=== PATIENT | female | born 1990 | race Two or more races ===

== ENCOUNTER 2021-07-01 15:14 | Inpatient (IN) ==
[2021-07-01 20:01] LABS: Basophils # (auto) 0.01 K/uL (0-0.2); Basophils % (auto) 0.1 %; Hematocrit (blood only) 39.1 % (37-47); Hemoglobin 13.1 g/dL (12.0-16.0); Immature Granulocytes # (auto) 0.03 K/uL (0.00-0.02); Immature Granulocytes % (auto) 0.2 %; Lymphocytes # (auto) 1.09 K/uL (1.2-3.4); Lymphocytes % (auto) 8.2 %; Mean Corpuscular Hemoglobin 29.8 pg (25-34); Mean Corpuscular Hgb Conc 33.5 g/dL (32-36); Mean Corpuscular Volume 88.9 fL (80-100); Mean Platelet Volume 12.6 fL (7.4-10.4); Monocytes # (auto) 1.14 K/uL (0.11-0.59); Monocytes % (auto) 8.5 %; Platelet Count 184 K/uL (130-400); RDW Coefficient of Variation 13.1 % (11.5-14.5); RDW Standard Deviation 42.8 fL (36.4-46.3); White Blood Count 13.37 K/uL (4.8-10.8)
[2021-07-01] MEDS ORDERED: ACETAMINOPHEN 1,000 MG/100 ML VIAL IV STA (20:07)
[2021-07-01] MEDS ORDERED: ONDANSETRON INJ 2 MG/ML 2 ML VIAL IV STA ×2 (20:07→23:56)
[2021-07-01] MEDS ORDERED: KETOROLAC TROMETHAMINE 15 MG/ML VIAL IV STA (20:07)
[2021-07-01] MEDS: SODIUM CHLORIDE 0.9% 1000ML 1,000 ML IV SCH ×2 (20:24→21:50)
[2021-07-01 20:25] LABS: Appearance Urine Turbid (Clear); Bacteria Urine Automated 2+ (Negative); Bilirubin Urine Negative (Negative); Blood Urine 3+ (Negative); Color Urine Orange; Epithelial Cell Urine Auto >30 /lpf (0-5); Glucose Urine UA Negative (Negative); Ketones Urine Negative (Negative); Leukocyte Esterase Urine 3+ (Negative); Nitrite Urine Negative (Negative); RBC Urine Automated >30 /hpf (0-4); Specific Gravity Urine 1.016 (1.000-1.030); Urobilinogen Urine Negative (Negative); WBC Urine Automated >30 /hpf (0-5); pH Urine >= 9.0 (4.5-7.5)
[2021-07-01 20:25] LABS: Albumin Level 3.7 gm/dl (3.4-5.0); Calcium 9.5 mg/dl (8.5-10.1); Creatinine Clr Calc Pharmacy 115.7 ml/min; Est GFR (African American) 137.4 ml/min; Est GFR (Non-African American) 118.5 ml/min; Potassium 4.1 mmol/L (3.5-5.1)
[2021-07-01 20:29] LABS: Albumin Globulin Ratio 0.8 (0.9-2); Bilirubin,Total 0.7 mg/dl (0.2-1); Globulin 4.5 gm/dl (2.5-4.0); Total Protein 8.2 gm/dl (6.4-8.2)
[2021-07-01 20:34] LABS: Protein Urine 3+ (Negative)
[2021-07-01 20:38] LABS: Pregnancy Test, Urine Negative (Negative)
--- NOTE | 2021-07-01 20:41 | Emergency Department Note ---
History of Present Illness General Chief complaint: Vomiting Stated complaint: VOMITING, BACK ACHE Time Seen by Provider: 07/01/21 19:32 History of Present Illness Maximum Pain Intensity: 5 Patient is a healthy 31-year-old female who presents the emergency department for evaluation of left-sided flank pain with associated nausea and vomiting. She is accompanied by her spouse. They both provide the history. They note that the patient developed some dysuria, frequency, urgency and hematuria last week, about 6 days ago. She was seen at a urgent care center, and placed on a 3-day course of Bactrim and Pyridium. They did call her back and told her that the urine culture was "inconclusive." She appeared to be improving on the Bactrim however, so she finished this on Thursday 3 days ago. Later that evening however she developed vomiting, and then 2 days ago developed left flank pain. They tried increasing her fluid intake, and home remedies for constipation, using [id number] antacids and Gas-X, all without relief. She now has not been able to keep anything down since this morning. She is basically just dry heaving at this point. She did have some loose watery stools after using a laxative. She points to the left posterior ribs when asked where she has pain. She currently rates her discomfort a 5/10. She was having some discomfort that radiated to the left lower quadrant as well. Last menstrual period was 06/14/2021. Home Medications Medication Instructions Recorded Confirmed Type bisacodyl 5 mg tablet (Laxative 0 mg PO DIRECTED PRN 07/01/21 07/01/21 History (bisacodyl)) calcium carbonate 200 mg calcium 200 - 400 mg PO DIRECTED PRN 07/01/21 07/01/21 History (500 mg) chewable tablet (Tums) sulfamethoxazole 800 1 tab PO BID 07/01/21 07/01/21 History mg-trimethoprim 160 mg tablet (Bactrim DS) Allergies Allergy/AdvReac Type Severity Reaction Status Date / Time No Known Allergies Allergy Verified 07/01/21 20:02 Past Med/Surg History Medical History (Updated 07/02/21 @ 09:01 by Aris Meier M.D.) No significant past medical history Surgical History (Updated 07/02/21 @ 01:05 by Hubert Murphy) No history of previous surgery Social History Smoking Status: Never smoker Hx Alcohol Use: No Hx Substance Use: No Preferred Language: Kenyan Communication Ability: Effective Beliefs That Will Affect Care: None marital status: Current Living Situation: Spouse current occupational status: unemployed 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 Other Information That Helps Us Care for You: No Feels Safe at Home: Yes Safety Concerns: Feels Safe At This Time Assistive Devices: None Review of Systems A total of 10 systems reviewed and were otherwise negative Physical Exam Vital Signs Vital Signs - 24 hr 07/01/21 16:49 07/01/21 20:00 07/01/21 21:20 Temperature 36.4 C L 39.4 C H 37.6 C H Temperature Source Temporal Artery Scan Oral Oral Pulse Rate 89 Pulse Rate [Radial] Pulse Rhythm [Radial] Respiratory Rate 18 Respiratory Effort / Characteristics Non-Labored Spontaneous Respiratory Depth Normal Respiratory Pattern Regular Blood Pressure 111/76 Blood Pressure [Right Arm] Blood Pressure Mean 87 Blood Pressure Mean [Right Arm] Blood Pressure Position Sitting Blood Pressure Position [Right Arm] Pulse Oximetry 96 Oxygen Delivery Method Room Air Sepsis Recent Fever Within 48 Hours No Sepsis New/Unexplained Change in Mental Status No Sepsis Action Taken by Nursing No Action Required 07/01/21 22:47 07/01/21 23:00 07/01/21 23:02 Temperature 37.6 C H 37.7 C H Temperature Source Oral Oral Pulse Rate 104 H Pulse Rate [Radial] 82 Pulse Rhythm [Radial] Regular Respiratory Rate 20 18 Respiratory Effort / Characteristics Non-Labored Respiratory Depth Normal Respiratory Pattern Regular Blood Pressure 118/77 Blood Pressure [Right Arm] 139/87 Blood Pressure Mean 90 Blood Pressure Mean [Right Arm] 104 Blood Pressure Position Blood Pressure Position [Right Arm] Lying Pulse Oximetry 98 98 Oxygen Delivery Method Room Air Sepsis Recent Fever Within 48 Hours Sepsis New/Unexplained Change in Mental Status Sepsis Action Taken by Nursing CONSTITUTIONAL: Patient is an uncomfortable appearing 31-year-old female who is awake and alert and laying on the gurney. Spouse is at the bedside. Temperature was rechecked by myself prior to exam and was 39.4 C orally. EYES: Pupils equal, round, reactive to light and accommodation. EOMs intact without nystagmus. Sclera are anicteric. ENT: Tympanic membranes intact, with normal landmarks. External canals are clear. Oral and nasopharynx are clear. Mucous membranes are moist, no lesions, tongue and gums appear normal. CARDIOVASCULAR: Tachycardic rate and rhythm, with normal S1 and S2, no murmur or gallop or rub is heard. Peripheral pulses easily palpable. RESPIRATORY: Breath sounds equal and clear to auscultation without wheezes, rales, or rhonchi heard. Full and equal chest expansion without accessory muscle use or retractions. ABDOMEN: Bowel sounds are present. Abdomen is soft, nontender, nondistended. No guarding or rebound. Positive left CVA tenderness. INTEGUMENTARY: No lesions or rash, normal skin turgor. LYMPH: No lymphadenopathy. Course Course The patient was seen and assessed as above. Old records are reviewed. She presents the emergency department for evaluation of left flank pain with a prodr ome of UTI symptoms. She was found to be febrile in the emergency department. Nursing staff had implemented critical pathways prior to my assessment of the patient. CBC with differential, CMP, lipase and urinalysis were ordered. After my assessment of the patient, she was ordered a liter of normal saline solution. She was medicated with Tylenol 1000 mg IV for her fever, Toradol 15 mg IV for h er flank pain and Zofran 4 mg IV for nausea. CT scan of the abdomen and pelvis with IV contrast was ordered. Laboratory studies note a 13,300 white count with left shift and bandemia noted. H&H 13 and 39. [place] some without significant abnormality UN 7, creatinine 0.6 transaminases are normal. Lipase is 138. Urine microscopy concerning for infection, with blood, leukocyte esterase, WBCs, RBCs and 2+ bacteria. test is negative. CT scan of the abdomen and pelvis with IV contrast notes moderate urinary bladder wall thickening, probable cystitis given history. Enhancement of the left ureter, renal pelvis and patchy hypoenhancement of the renal cortex suggestive of a left pyelonephritis. Probable cyst in the left upper pole kidney, 1 cm intrarenal abscess in the upper pole difficult to entirely exclude. Colonic wall thickening and intermittent small bowel fluid nonspecific cannot rule out colitis or gastroenteritis. No free air. No small bowel obstruction. Laboratory and diagnostic imaging stat these were viewed with attending, and reviewed with the patient and her spouse at length. Patient on ceftriaxone 1 g IV. Temperature was rechecked by myself at this time, and the patient was afebrile, temperature 37.6 C orally. Given the possible renal abscess, I did review the patient with urology on-call, Dr. Prescott, who felt that the patient could be treated our facility. I did discuss inpatient care with the patient's and her , and they were in agreement. Consultation was placed with the [facility] Hospitalist service for admission/observation. Patient was seen by Dr. Lugo. The patient did have an episode of vomiti ng in the emergency department and was given a dose of Zofran 4 mg IV prior to being transferred to the floor. Administered Medications Acetaminophen (Acetaminophen 325 Mg Tab) 650 mg PO Q4H PRN PRN Reason: Pain or Fever Stop: 08/01/21 01:12 Last Admin: 07/02/21 01:41 Dose: 650 mg Documented by: [id number] Sodium Chloride (Nss 1000ml) 1,000 mls @ 100 mls/hr IV .Q10H ANTIONE Stop: 08/01/21 01:12 Last Admin: 07/02/21 01:41 Dose: 100 mls/hr Documented by: [id number] Discontinued Medications Acetaminophen (Acetaminophen 500 Mg Tab) 1,000 mg PO NOW STA Stop: 07/01/21 23:36 Last Admin: 07/02/21 00:11 Dose: Not Given Documented by: [id number] Sodium Chloride (Nss 1000ml) 1,000 mls @ 999 mls/hr IV .Q1H1M ANTIONE Stop: 07/01/21 22:08 Last Infusion: 07/01/21 22:51 Dose: 0 mls/hr Documented by: [id number] Admin: 07/01/21 21:50 Dose: 999 mls/hr Documented by: [id number] Infusion: 07/01/21 21:25 Dose: 0 mls/hr Documented by: [id number] Admin: 07/01/21 20:24 Dose: 999 mls/hr Documented by: [id number] Acetaminophen (Ofirmev) 1,000 mg in 100 mls @ 400 mls/hr IV NOW STA Stop: 07/01/21 20:21 Last Infusion: 07/01/21 20:39 Dose: 0 mls/hr Documented by: [id number] Admin: 07/01/21 20:24 Dose: 400 mls/hr Documented by: [id number] Ceftriaxone Sodium (Rocephin) 1,000 mg in 50 mls @ 100 mls/hr IV NOW STA Stop: 07/01/21 21:55 Last Infusion: 07/01/21 22:24 Dose: 0 mls/hr Documented by: [id number] Admin: 07/01/21 21:51 Dose: 100 mls/hr Documented by: [id number] Sodium Chloride (Nss 1000ml) 1,000 mls @ 999 mls/hr IV .Q1H1M ONE Stop: 07/02/21 08:48 Last Admin: 07/02/21 08:02 Dose: 999 mls/hr Documented by: [id number] Influenza Virus Vaccine Quadrival (Fluarix Quadrivalent 0.5 Ml Syr) 0.5 ml IM .ONCE ONE Stop: 07/02/21 01:34 Last Admin: 07/02/21 05:53 Dose: 0.5 ml Documented by: [id number] Ioversol (Optiray 320 100ml) 94 ml IV ONCE ONE Stop: 07/01/21 20:48 Last Admin: 07/01/21 20:48 Dose: 94 ml Documented by: [id number] Ketorolac Tromethamine (Ketorolac Tromethamine 15 Mg/Ml Vial) 15 mg IV NOW STA Stop: 07/01/21 20:08 Last Admin: 07/01/21 20:25 Dose: 15 mg Documented by: [id number] Ondansetron HCl (Ondansetron Inj 2 Mg/Ml 2 Ml Vial) 4 mg IV NOW STA Stop: 07/01/21 20:08 Last Admin: 07/01/21 20:24 Dose: 4 mg Documented by: [id number] Ondansetron HCl (Ondansetron Inj 2 Mg/Ml 2 Ml Vial) 4 mg IV NOW STA Stop: 07/01/21 23:57 Last Admin: 07/02/21 00:05 Dose: 4 mg Documented by: [id number] Medical Decision Making Differential Diagnosis Differential diagnoses included UTI, pyelonephritis, renal colic, infectious versus inflammatory colitis/enteritis, foodborne illness, dehydration, electrolyte of enterocolic abnormality, , ectopic , PID, tubo- ovarian abscess, among others. Medical Records Attestation: I reviewed the patient's medical records. Home Medications Current Medication List: was personally reviewed by me Laboratory Data Attestation: I reviewed the patient's lab results. Result diagrams: 07/02/21 07:47 07/02/21 07:47 Lab Results 07/01/21 07/01/21 07/01/21 Range/Units 19:42 19:42 19:50 WBC 13.37 H (4.8-10.8) K/uL RBC 4.40 (4.2-5.4) M/uL Hgb 13.1 (12.0-16.0) g/dL Hct 39.1 (37-47) % MCV 88.9 (80-100) fL MCH 29.8 (25-34) pg MCHC 33.5 (32-36) g/dL RDW Std Deviation 42.8 (36.4-46.3) fL RDW Coeff of Mitali 13.1 (11.5-14.5) % Plt Count 184 (130-400) K/uL MPV 12.6 H (7.4-10.4) fL Immature Gran % (Auto) 0.2 % Neut % (Auto) 83.0 % Lymph % (Auto) 8.2 % [place] % (Auto) 8.5 % Eos % (Auto) 0.0 % Baso % (Auto) 0.1 % Neut # (Auto) 11.10 H (1.4-6.5) K/uL Lymph # (Auto) 1.09 L (1.2-3.4) K/uL [place] # (Auto) 1.14 H (0.11-0.59) K/uL Eos # (Auto) 0.00 (0-0.5) K/uL Baso # (Auto) 0.01 (0-0.2) K/uL Immature Gran # (Auto) 0.03 H (0.00-0.02) K/uL Sodium 134 L (136-145) mmol/L Potassium 4.1 (3.5-5.1) mmol/L Chloride 101 (98-107) mmol/L Carbon Dioxide 27 (21-32) mmol/L Anion Gap 6.0 (3-11) BUN 7 (7-18) mg/dl Creatinine 0.66 (0.6-1.2) mg/dl Est Cr Clr Drug Dosing 115.7 ml/min Est GFR ( Amer) 137.4 ml/min Est GFR (Non-Af Amer) 118.5 ml/min BUN/Creatinine Ratio 10.0 (10-20) Glucose 133 H (70-99) mg/dl Calcium 9.5 (8.5-10.1) mg/dl Total Bilirubin 0.7 (0.2-1) mg/dl AST 21 (15-37) U/L ALT 49 (12-78) U/L Alkaline Phosphatase 58 (45-117) U/L Total Protein 8.2 (6.4-8.2) gm/dl Albumin 3.7 (3.4-5.0) gm/dl Globulin 4.5 H (2.5-4.0) gm/dl Albumin/Globulin Ratio 0.8 L (0.9-2) Lipase 138 (73-393) U/L Urine Color [place] Urine Appearance Turbid A (Clear) Urine pH >= 9.0 H (4.5-7.5) Ur Specific [place] 1.016 (1.000-1.030) Urine Protein 3+ H (Negative) Urine Glucose (UA) Negative (Negative) Urine Ketones Negative (Negative) Urine Blood 3+ H (Negative) Urine Nitrite Negative (Negative) Urine Bilirubin Negative (Negative) Urine Urobilinogen Negative (Negative) Ur Leukocyte Esterase 3+ H (Negative) Urine WBC (Auto) >30 H (0-5) /hpf Urine RBC (Auto) >30 H (0-4) /hpf U Hyaline Cast (Auto) 1-5 (0-5) /lpf U Epithel Cells (Auto) >30 H (0-5) /lpf Urine Bacteria (Auto) 2+ H (Negative) Urine Test (Negative) COVID-19 Eval Order SARS-CoV-2 (PCR) (Negative) 07/01/21 07/01/21 07/01/21 Range/Units 19:50 22:22 22:22 WBC (4.8-10.8) K/uL RBC (4.2-5.4) M/uL Hgb (12.0-16.0) g/dL Hct (37-47) % MCV (80-100) fL MCH (25-34) pg MCHC (32-36) g/dL RDW Std Deviation (36.4-46.3) fL RDW Coeff of Mitali (11.5-14.5) % Plt Count (130-400) K/uL MPV (7.4-10.4) fL Immature Gran % (Auto) % Neut % (Auto) % Lymph % (Auto) % [place] % (Auto) % Eos % (Auto) % Baso % (Auto) % Neut # (Auto) (1.4-6.5) K/uL Lymph # (Auto) (1.2-3.4) K/uL [place] # (Auto) (0.11-0.59) K/uL Eos # (Auto) (0-0.5) K/uL Baso # (Auto) (0-0.2) K/uL Immature Gran # (Auto) (0.00-0.02) K/uL Sodium (136-145) mmol/L Potassium (3.5-5.1) mmol/L Chloride (98-107) mmol/L Carbon Dioxide (21-32) mmol/L Anion Gap (3-11) BUN (7-18) mg/dl Creatinine (0.6-1.2) mg/dl Est Cr Clr Drug Dosing ml/min Est GFR ( Amer) ml/min Est GFR (Non-Af Amer) ml/min BUN/Creatinine Ratio (10-20) Glucose (70-99) mg/dl Calcium (8.5-10.1) mg/dl Total Bilirubin (0.2-1) mg/dl AST (15-37) U/L ALT (12-78) U/L Alkaline Phosphatase (45-117) U/L Total Protein (6.4-8.2) gm/dl Albumin (3.4-5.0) gm/dl Globulin (2.5-4.0) gm/dl Albumin/Globulin Ratio (0.9-2) Lipase (73-393) U/L Urine Color Urine Appearance (Clear) Urine pH (4.5-7.5) Ur Specific [place] (1.000-1.030) Urine Protein (Negative) Urine Glucose (UA) (Negative) Urine Ketones (Negative) Urine Blood (Negative) Urine Nitrite (Negative) Urine Bilirubin (Negative) Urine Urobilinogen (Negative) Ur Leukocyte Esterase (Negative) Urine WBC (Auto) (0-5) /hpf Urine RBC (Auto) (0-4) /hpf U Hyaline Cast (Auto) (0-5) /lpf U Epithel Cells (Auto) (0-5) /lpf Urine Bacteria (Auto) (Negative) Urine Test Negative (Negative) COVID-19 Eval Order Covid19 at [facility] SARS-CoV-2 (PCR) NEGATIVE (Negative) Imaging Data Attestation: I personally reviewed and interpreted this imaging study as follows: Radiologist's Impression: Abdomen/Pelvis CT 07/01/21 20:07 CT abd pelvis IV con only CLINICAL HISTORY: LEFT FLANK PAIN, UTI SYMPTOMS, FEVER COMPARISON STUDY: None. TECHNIQUE: A dose lowering technique was utilized adhering to the principles of ALARA. CT DOSE: 257.94 mGy.cm FINDINGS: Lower chest: Limited evaluation of lung bases shows no evidence of acute abnormalities.. Liver: The contrast-enhanced liver is normal in size, contour, and attenuation. There is no intrahepatic biliary ductal dilatation. The hepatic veins and portal veins are patent. Gallbladder: Gallbladder is partially contracted. No evidence of pericholecystic edema or gallstones. There is possible pharyngeal cap or gallbladder diverticulum versus other etiology Spleen: Normal in size and attenuation. Pancreas: Unremarkable. Adrenal glands: Unremarkable. Kidneys: No hydronephrosis is seen on the right. There is questionable ill-defined area of heterogeneous attenuation within superior aspect of the left renal parenchyma which might represent pyelonephritis and abscess formation, better visualized on coronal reconstruction. There is delayed of contrast excretion and hydronephrosis is seen on the left with surrounding perinephric fat stranding. 1.5 cm left renal cyst is seen. Proximal aspect of the left ureter is dilated, shows mucosal enhancement and measures up to 1.3 cm. No definite intraluminal calculi is seen. Mid and distal aspect of the left ureter are not well seen. Pelvic viscera: Urinary bladder is partially decompressed with diffuse thickening of its wall and mild surrounding fat stranding which could be seen in cystitis. Uterine cavity is prominent. Bilateral adnexa shows normal CT appearance. Possible corpus luteum cyst is seen on the right. Bowel: The small bowel and colon are normal in course and caliber. Appendix is nondilated. Peritoneum: There is no intraperitoneal free air or abdominal ascites. Vasculature: The abdominal aorta is normal in course and caliber. Adenopathy: None. Skeletal structures: No definite aggressive osseous lesions are seen. Multiple sclerotic lesions are seen within right iliac bone and right femoral head likely representing enostosis. IMPRESSION: 1. Hydronephrosis and perinephric stranding on the left also associated with dilatation of the proximal left ureter. No obstructive calculi are seen. Area of change of ureter caliber shows no evidence of calculi. 2. Focal area of heterogeneous attenuation/enhancement at superior pole of the left kidney, might represent pyelonephritis/developing abscess. 3. Diffuse thickening of urinary bladder wall which might be seen in cystitis. 4. Possible pharyngeal cap versus gallbladder diverticulum or other etiology. No acute abnormalities of the gallbladder are seen. Further evaluation with gallbladder ultrasound on nonemergency basis might be considered. ACT 112: Positive. There are findings on this exam that require communication between the performing entity and the patient following Patient Test Result Information Act ([place] Act 112) guidelines. The above report was generated using voice recognition software. It may contain grammatical, syntax or spelling errors. Electronically signed by: Steff Nino DO 07/02/2021 7:46 AM Per Stat Rad: Moderate urinary bladder wall thickening is nonspecific, probable cystitis, given history correlate clinically. Enhancement left ureter, renal pelvis and patchy hypoenhancement renal cortex, suggestive of left pyelonephritis. Probable cyst in the left upper pole kidney, 1 cm intrarenal abscess in the upper pole difficult to entirely exclude. No perinephric abscess or obstruction. Colonic wall thickening and intermittent small bowel fluid, nonspecific, cannot rule out colitis and or and gastroenteritis no small bowel obstruction, free air or free fluid. MDM Narrative See ED course Impression & Plan Pyelonephritis Discharge Plan Visit Data Chief Complaint: Vomiting Stated Complaint: VOMITING, BACK ACHE ED Provider: Aris Meier ED Midlevel Provider: Hubert Murphy Discharge Problem: Pyelonephritis Patient Disposition: Admitted As Inpatient Discharge Instructions Interventions: ED Discharge Assessment Last Done: 07/02/21 00:35
[2021-07-01] MEDS ORDERED: OPTIRAY 320 100ml IV ONE (20:47)
[2021-07-01] MEDS ORDERED: cefTRIAXone SODIUM 1,000 MG/50 ML BAG IV STA (21:26)
--- NOTE | 2021-07-01 23:28 | History & Physical Report ---
Date of Service July 01, 2021 Assessment & Plan (1) Pyelonephritis: Plan: 31-year-old female with no significant past medical history who comes to [facility] with urinary symptoms and findings suggestive of pyelonephritis with imaging suspicious for possible renal abscess. Pyelonephritis -UA with findings suggestive of urinary infection -CT abdomen and pelvis with findings suggestive of pyelonephritis and possible renal abscess via statrad as above -Received ceftriaxone 1 g IV in ED -Continue ceftriaxone 1 g IV daily -Urology consulted for concern of renal abscess -Maintenance IV fluids for hydration until patient tolerating p.o. -Zofran as needed -Admit to MedSurg telemetry DVT prophylaxis: No chemoprophylaxis at this time, encourage ambulation as tolerated FENGI: Regular diet, NSS at 100 cc/h Dispo: MedSurg telemetry CODE STATUS: Full code History of Present Illness Primary Care Provider: NO PCP Patient is a 31-year-old female with no significant past medical history who presented for left-sided flank pain with nausea and vomiting. She mentions that she was recently diagnosed with a UTI at a urgent care about 6 days ago. She had urinary symptoms including dysuria, frequency, urgency, hematuria. She was given a 3-day course of Bactrim and Pyridium. Per patient and , they received a call from the urgent care center stating that her urine culture was inconclusive. However, she did complete her entire course of Bactrim. She mentions that the symptoms were improving when she was on Bactrim but shortly after completing the treatment, symptoms returned and she also developed vomiting as well as left flank pain. She has been unable to tolerate very much oral nutrition or hydration. Currently, patient states that her pain is largely well controlled and rates it about it 2-3 out of 10. She says at worst has been up to a 7 or 8. In the ED, received acetaminophen 1000 mg x 1, ceftriaxone 1000 mg x 1, Toradol 15 mg IV x1, normal saline 1 L bolus, Zofran 4 mg IV x1. Had CT abdomen/pelvis read by statrad as outlined below. Additionally, had labs significant for white count of 13.37, urinalysis with turbid appearance, high pH, 3+ protein, 3+ blood, 3+ leuk esterase, WBCs, RBCs, epithelial cells, 2+ bacteria. Allergies Allergy/AdvReac Type Severity Reaction Status Date / Time No Known Allergies Allergy Verified 07/01/21 20:02 Home Medications Medication Instructions Recorded Confirmed Type bisacodyl 5 mg tablet (Laxative 0 mg PO DIRECTED PRN 07/01/21 07/01/21 History (bisacodyl)) calcium carbonate 200 mg calcium 200 - 400 mg PO DIRECTED PRN 07/01/21 07/01/21 History (500 mg) chewable tablet (Tums) sulfamethoxazole 800 1 tab PO BID 07/01/21 07/01/21 History mg-trimethoprim 160 mg tablet (Bactrim DS) Past Med/Surg History Medical History No significant past medical history Surgical History No history of previous surgery Social History Smoking Status: Never smoker Hx Alcohol Use: No Hx Substance Use: No Preferred Language: Pakistani Communication Ability: Effective Beliefs That Will Affect Care: None marital status: Current Living Situation: Spouse current occupational status: unemployed 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 Other Information That Helps Us Care for You: No Feels Safe at Home: Yes Safety Concerns: Feels Safe At This Time Assistive Devices: None Review of Systems Constitutional: + fever, + chills and + weakness Eyes: no problem reported Ear, Nose, Mouth, Throat: no problem reported Respiratory: no cough and no dyspnea Cardiovascular: no chest pain and no palpitations Gastrointestinal: + diarrhea/loose stools (after taking laxative at home) Genitourinary: as per Subjective / HPI Musculoskeletal: no neck pain and no joint pain Integumentary: no rash and no lesions Neurologic: no localized weakness, no loss of sensation and no tingling Physical Exam Physical Exam: GENERAL: A&Ox3. NAD. HEENT: PERRL, EOMI. Moist mucous membranes. NECK: No JVD. No lymphadenopathy. CHEST/LUNGS: CTAB A/P. No crackles, wheezes, rales, rhonchi. HEART: RRR. No m/g/r. No carotid bruits. ABDOMEN: ND, soft. BS+x4. TTP LLQ, + CVA tenderness on left EXTREMITIES: No cyanosis, no clubbing, no edema SKIN: Warm and dry. No rashes or lesions. PSYCHIATRIC: Euthymic affect, no SI, no pressured speech, no hallucinations NEUROLOGIC: No FND. CN II-XII grossly intact. Results & Data Results & Data ([facility]) Vital Signs (Past 12 Hours) Vital Signs Temp Pulse Pulse Resp BP BP Pulse Ox 07/01/21 23:02 37.7 C H 07/01/21 22:47 37.6 C H 82 20 139/87 98 07/01/21 21:20 37.6 C H 07/01/21 20:00 39.4 C H 07/01/21 16:49 36.4 C L 89 18 111/[address] A/P: Moderate urinary bladder wall thickening is nonspecific, probable cystitis, given history, correlate clinically. Enhancement left ureter, renal pelvis and patchy hypoenhancement renal cortex, suggestive of left pyelonephritis. Probable cyst in the left upper pole kidney, 1 cm intrarenal abscess in the upper pole difficult to entirely exclude. No perinephric abscess or obstruction. Colonic wall thickening and intermittent small bowel fluid, nonspecific, cannot rule out colitis and gastroenteritis. No SBO, free air or free fluid. Radiologist: Kayley De Jesus M.D. Supervising Physician Co-Signing Physician Notes Attending addendum: I have physically seen this patient, have supervised the medical residents activities, and agree with the H&P unless as otherwise noted. Assessment and Plan: Left-sided pyelonephritis/cystitis/1 cm intrarenal abscess- Follow urine culture and sensitivity Ceftriaxone 1 g IV daily NSS at 80 mils per hour Zofran 4 mg IV every 6 hours as needed Famotidine 20 mg IV every 12 hours Consult urology Admit to [facility] telemetry Remaining orders and notations as noted Resident Activity Tracking Resident Involvement: Resident Care Provided Care Provided: Adult Hospital Medicine
[2021-07-01] MEDS: ACETAMINOPHEN 500 MG TAB PO STA (23:50)
[2021-07-02] MEDS: ACETAMINOPHEN 500 MG TAB PO STA (00:11)
[2021-07-02] MEDS ORDERED: MAGNESIUM HYDROXIDE SUSP 30 ML UDC PO PRN (01:13)
[2021-07-02] MEDS ORDERED: POLYETHYLENE (MIRALAX) 17 GM PACK PO PRN (01:13)
[2021-07-02] MEDS ORDERED: ALUMINUM/MAGNESIUM SUSP 30 ML UDC PO PRN (01:13)
[2021-07-02] MEDS ORDERED: FLUARIX QUADRIVALENT 0.5 ML SYR IM ONE (01:33)
[2021-07-02] MEDS: ACETAMINOPHEN 325 MG TAB PO PRN ×2 (01:41→21:52)
[2021-07-02] MEDS: SODIUM CHLORIDE 0.9% 1000ML 1,000 ML IV SCH ×2 (01:41→14:18)
--- NOTE | 2021-07-02 07:47 | CT Scan Report ---
CT abd pelvis IV con only CLINICAL HISTORY: LEFT FLANK PAIN, UTI SYMPTOMS, FEVER COMPARISON STUDY: None. TECHNIQUE: A dose lowering technique was utilized adhering to the principles of ALARA. CT DOSE: 257.94 mGy.cm FINDINGS: Lower chest: Limited evaluation of lung bases shows no evidence of acute abnormalities.. Liver: The contrast-enhanced liver is normal in size, contour, and attenuation. There is no intrahepa tic biliary ductal dilatation. The hepatic veins and portal veins are patent. Gallbladder: Gallbladder is partially contracted. No evidence of pericholecystic edema or gallstones. There is possible pharyngeal cap or gallbladder diverticulum versus other etiology Spleen: Normal in size and attenuation. Pancreas: Unremarkable. Adrenal glands: Unremarkable. Kidneys: No hydronephrosis is seen on the right. There is questionable ill-defined area of heterogeneous attenuation within superior aspect of the lef t renal parenchyma which might represent pyelonephritis and abscess formation, better visualized on c oronal reconstruction. There is delayed of contrast excretion and hydronephrosis is seen on the left with surrounding perine phric fat stranding. 1.5 cm left renal cyst is seen. Proximal aspect of the left ureter is dilated, s hows mucosal enhancement and measures up to 1.3 cm. No definite intraluminal calculi is seen. Mid and distal aspect of the left ureter are not well seen. Pelvic viscera: Urinary bladder is partially decompressed with diffuse thickening of its wall and mil d surrounding fat stranding which could be seen in cystitis. Uterine cavity is prominent. Bilateral a dnexa shows normal CT appearance. Possible corpus luteum cyst is seen on the right. Bowel: The small bowel and colon are normal in course and caliber. Appendix is nondilated. Peritoneum: There is no intraperitoneal free air or abdominal ascites. Vasculature: The abdominal aorta is normal in course and caliber. Adenopathy: None. Skeletal structures: No definite aggressive osseous lesions are seen. Multiple sclerotic lesions are seen within right iliac bone and right femoral head likely representing enostosis. IMPRESSION: 1. Hydronephrosis and perinephric stranding on the left also associated with dilatation of the proxi mal left ureter. No obstructive calculi are seen. Area of change of ureter caliber shows no evidence of calculi. 2. Focal area of heterogeneous attenuation/enhancement at superior pole of the left kidney, might re present pyelonephritis/developing abscess. 3. Diffuse thickening of urinary bladder wall which might be seen in cystitis. 4. Possible pharyngeal cap versus gallbladder diverticulum or other etiology. No acute abnormalities of the gallbladder are seen. Further evaluation with gallbladder ultrasound on nonemergency basis mi ght be considered. ACT 112: Positive. There are findings on this exam that require communication between the performing entity and the patient following Patient Test Result Information Act ([place] Act 112) guidelines. The above report was generated using voice recognition software. It may contain grammatical, syntax o r spelling errors. Electronically signed by: Steff Nino DO 07/02/2021 7:46 AM
[2021-07-02] MEDS ORDERED: SODIUM CHLORIDE 0.9% 1000ML 1,000 ML IV ONE (07:48)
[2021-07-02 08:06] LABS: Hematocrit (blood only) 33.4 % (37-47); Immature Granulocytes # (auto) 0.04 K/uL (0.00-0.02); Immature Granulocytes % (auto) 0.3 %; Lymphocytes # (auto) 1.04 K/uL (1.2-3.4); Lymphocytes % (auto) 6.5 %; Mean Corpuscular Hemoglobin 28.8 pg (25-34); Mean Corpuscular Hgb Conc 32.9 g/dL (32-36); Mean Corpuscular Volume 87.4 fL (80-100); Mean Platelet Volume 12.1 fL (7.4-10.4); Monocytes # (auto) 0.48 K/uL (0.11-0.59); Neutrophils # (auto) 14.39 K/uL (1.4-6.5); Neutrophils % (auto) 90.2 %; Platelet Count 141 K/uL (130-400); RDW Coefficient of Variation 13.2 % (11.5-14.5); RDW Standard Deviation 42.4 fL (36.4-46.3); Red Blood Count 3.82 M/uL (4.2-5.4); White Blood Count 15.95 K/uL (4.8-10.8)
[2021-07-02 08:51] LABS: BUN Creatinine Ratio 9.4 (10-20); Calcium 7.9 mg/dl (8.5-10.1); Creatinine Clr Calc Pharmacy 134.2 ml/min; Est GFR (African American) 144.2 ml/min; Est GFR (Non-African American) 124.4 ml/min; Potassium 4.1 mmol/L (3.5-5.1)
[2021-07-02] MEDS: ONDANSETRON INJ 2 MG/ML 2 ML VIAL IV PRN ×2 (09:04→17:01)
--- NOTE | 2021-07-02 12:07 | Urology Consultation ---
Date of Consultation July 02, 2021 Assessment & Plan (1) Pyelonephritis: 31yo F admitted with intractable left flank pain with associated nausea/vomiting secondary to suspected pyelonephritis, possible developing abscess - CT imaging and plan of care reviewed with Dr. Alberto, on-call urologist - Imaging reviewed - Left-sided hydronephrosis and perinephric stranding noted; Focal area of heterogeneous attenuation/enhancement at superior pole of the left kidney, possibly representing pyelonephritis/developing abscess; Diffuse thickening of urinary bladder wall - Pt afebrile at time of exam, non-toxic appearing --Tmax 39.4 yesterday - Labs reviewed, Wbc 15.95 today, Hgb 11.0, Cr 0.57 --Will continue to trend - UCx preliminary gram negative bacilli; BCx pending -- Continues on IV Ceftriaxone - Pt voiding without difficulty -- Bladder scan now and PRN to ensure complete emptying - No acute intervention warranted at this time - If patient does not progress as expected, will repeat imaging with renal ultrasound to evaluate for progression of potential abscess - If she becomes febrile or clinically deteriorates with evidence of sepsis, will need to consider emergent stent placement versus transfer to tertiary care for percutaneous nephrostomy. - Continue supportive care and antibiotic therapy, follow cultures - Will continue to follow closely with primary team - Please consult our service urgently if patient develops fever >101F, intractable pain or nausea, as this will necessitate urgent surgical intervention. Supervising Physician Co-Signing Physician Notes Discussed patient and plan with [facility]. Saw patient personally. Agree with above. 31 yo F with concern for UTI and pyelonephritis. CT showed inflammation in bladder as well as proximal left ureter with mild hydronephrosis. No obvious abscess at this point but will have to monitor. Patient reported feeling better after admission. Nontoxic appearing. Bladder scan revealed that she is emptying her bladder well. Continue conservative management with antibiotics. If clinically worsens, will need vasquez catheter and possible left ureteral stent placement. Discussed this with patient and . Urology will continue to follow. History of Present Illness Attending Physician: Richard Bay DO History of Present Illness 31yo F who presented with intractable left flank pain with associated nausea/vomiting and was found on CT imaging to have a focal area of heterogeneous attenuation/enhancement at superior pole of the left kidney, possibly representing pyelonephritis/developing abscess. No significant PMHx The patient presented to the ED with c/o left flank pain, nausea, and vomiting. She mentioned that she was recently diagnosed with a UTI at a urgent care about 6 days ago. She had urinary symptoms including dysuria, frequency, urgency, hematuria. She was given a 3-day course of Bactrim and Pyridium. Per patient, she was told her urine culture was inconclusive. However, she did complete her entire course of Bactrim. She mentions that the symptoms were improving when bessy galvan was on Bactrim but shortly after completing the treatment, symptoms returned and she also developed vomiting as well as left flank pain. She has been unable to tolerate very much oral nutrition or hydration. On presentation to ED, she was febrile - Tmax 39.4 C, WBC 13.37, Cr 0.66. Urinalysis with turbid appearance, high pH, 3+ protein, 3+ blood, 3+ leuk esterase, WBCs, RBCs, epithelial cells, 2+ bacteria. CT abdomen pelvis IMPRESSION: 1. Hydronephrosis and perinephric stranding on the left also associated with dilatation of the proximal left ureter. No obstructive calculi are seen. Area of change of ureter caliber shows no evidence of calculi. 2. Focal area of heterogeneous attenuation/enhancement at superior pole of the left kidney, might represent pyelonephritis/developing abscess. 3. Diffuse thickening of urinary bladder wall which might be seen in cystitis. 4. Possible pharyngeal cap versus gallbladder diverticulum or other etiology. No acute abnormalities of the gallbladder are seen. Further evaluation with gallbladder ultrasound on nonemergency basis might be considered. Pt examined at bedside this AM. Awake, resting in bed on arrival. She reports feeling better today than yesterday. Still with left flank/suprapubic pain, but improved from yesterday. Denies fever or chills. She did eat a small amount of breakfast. No nausea or vomiting so far this morning. Feels she is emptying her bladder without difficulty. Denies hematuria or dysuria. She does report some urinary frequency at baseline. Denies additional urinary symptoms. Denies prior hx. Denies hx of recurrent UTI. She has never seen a urologist. Offers no additional complaints at this time Allergies Allergy/AdvReac Type Severity Reaction Status Date / Time No Known Allergies Allergy Verified 07/01/21 20:02 Home Medications Medication Instructions Recorded Confirmed Type bisacodyl 5 mg tablet (Laxative 0 mg PO DIRECTED PRN 07/01/21 07/01/21 History (bisacodyl)) calcium carbonate 200 mg calcium 200 - 400 mg PO DIRECTED PRN 07/01/21 07/01/21 History (500 mg) chewable tablet (Tums) sulfamethoxazole 800 1 tab PO BID 07/01/21 07/01/21 History mg-trimethoprim 160 mg tablet (Bactrim DS) Patient History Medical History No significant past medical history Surgical History No history of previous surgery Social History Smoking Status: Never smoker Hx Alcohol Use: No Hx Substance Use: No Preferred Language: Divehi Communication Ability: Effective Beliefs That Will Affect Care: None marital status: Current Living Situation: Spouse current occupational status: unemployed 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 Other Information That Helps Us Care for You: No Feels Safe at Home: Yes Safety Concerns: Feels Safe At This Time Assistive Devices: None Review of Systems Review of Systems: All systems reviewed & are unremarkable except as noted in HPI & below Physical Exam Constitutional: well developed and well nourished; no acute distress Respiratory: normal respiratory effort and able to speak in complete sentences; no labored breathing and no audible wheezes Gastrointestinal (Abdomen): Inspection/Auscultation: abdomen normal to inspection; abdomen not distended Percussion/Palpation: + abdomen tender (mild left flank/suprapubic tenderness with palpation) and abdomen soft; no guarding and abdomen not rigid Musculoskeletal: Head/Neck/Chest: normocephalic Skin: No visible rashes or lesions to exposed skin areas Neurologic: moves all extremities and awake Psychiatric: Orientation: alert, oriented x 3 and cooperative Genitourinary: + CVA tenderness (Left) Results & Data ([facility]) Vital Signs (Past 12 Hours) Vital Signs Temp Pulse Pulse Resp BP BP BP 07/02/21 09:10 96 H 97/64 L 07/02/21 08:01 93 H 92/57 L 07/02/21 07:01 37 C 96 H 16 83/56 L 07/02/21 00:50 37.5 C 121 H 16 98/58 L 07/02/21 00:00 126 H 18 114/68 07/01/21 23:30 109 H 20 125/82 Pulse Ox 07/02/21 09:10 07/02/21 08:01 07/02/21 07:01 97 07/02/21 00:50 98 07/02/21 00:00 97 07/01/21 23:30 98 PG Care Time/CCT Total # of Minutes Spent Total Time Spent with Patient: Total time spent is greater than 50% in coordination of care (as documented) at patient's floor/unit and/or counseling patient: Coding Level of Care Code 11542 Inpt Consult Level 4 Diagnoses Pyelonephritis N12
--- NOTE | 2021-07-02 13:14 | Student Report ---
[facility] Student Progress Note Date of Service Date of service: July 02, 2021 Physical Exam Physical Exam: Vitals: BP - 97/64 Pulse - 96 Resp - 16 Temp - 37* O2 Sat - 97 on room air General: well appearing and well nourished young woman in no acute distress CV: Regular rate and rhythm, normal S1 and S2, no murmurs/rubs/gallops Respiratory: Normal respiratory effort, lungs clear to auscultation bilaterally Abdomen: Bowel sounds present, abdomen is soft and non-distended. Suprapubic and left flank tenderness on soft and deep palpation.
--- NOTE | 2021-07-02 13:16 | Medical Student Progress Note ---
Date of Service July 02, 2021 Assessment & Plan (1) Pyelonephritis: Plan: Patient is a 31 yo F with no significant PMH admitted for L sided pyelonephritis and intrarenal abscess. L sided Pyelonephritis - CT of ABD and pelvis showed Hydronephrosis, dilatation of the proximal left ureter. Heterogeneous attenuation/enhancement at superior pole of the left kidney potentially representing pyelonephritis/developing abscess. Diffuse thic kening of urinary bladder wall. -Treated as outpatient with 3 day course of Bactrim, symptoms began to resolve then worsened prompting presentation to ED. -Urine culture preliminary gram negative bacilli, blood culture still pending - will continue IV Ceftriaxone 1g daily -She is voiding without difficulty currently, continue bladder scan PRN to ensure complete emptying -Urology consulted recommending renal ultrasound to evaluate for progression of potential abscess if patient does not improve as expected. -Will notify urology service if patient develops fever >101F, intractable pain or nausea for possible acute intervention (emergent stent placement versus transfer to tertiary care for percutaneous nephrostomy) -maintenance IV fluids for hydration until patient tolerating p.o. -Zofran as needed for nausea DVT prophylaxis: No chemoprophylaxis at this time, encourage ambulation as tolerated FEN/GI: Regular diet, NSS at 100 cc/h Dispo: MedSurg telemetry Code: Full Admission and Anticipated Discharge Date Admission Date: July 01, 2021 Supervising Attestation I personally examined the patient and verified all sterling points of history and exam, discussed case, and agree with decision making with Renetta Saldivar MS2 Feeling better than earlier, still fairly lousy though. Is somewhat improved. Still nauseatedthe thought of much of any food also makes her sick, but she was able to eat a banana and tea. Review of systems otherwise negative except for as above. Vitals noted, in general she is awake and alert pleasant no distress, later whenever I see her she appears to be resting comfortably. HEENT normocephalic atraumatic mucous membranes moist. Breathing unlabored no accessory muscle use good effort. Skin shows no rashes no pallor or icterus. Neuro shows no focal deficits. Labs and diagnostics noted Left-sided pyelonephritis with sepsis present on admissioncomplicated by small probable renal abscess, and confounded or complicated by possible ureteral stricture or obstruction. Does appear to be improving on ceftriaxone. The renal abscess is small enough that antibiotics alone should clear this. Follow blood cultures. As it relates to this apparent ureteral stricture or blockage with hydroureter, it is not clear if this is acute or chronic, and therefore is not entirely clear if it needs to be remedied for her to be on to clear the infection. Agree with urologyshe might need cystoscopy and stenting, but if she improves nicely, this may be a chronic issue that just needs to be monitored, or perhaps intervened on semielectively. At the same time, if she shows bacteremia that would definitely be concerning for significant back pressure between the strictured area and her kidney, if she worsens at all, or if she fails to improvethis would all be reasonable indications to say that we definitely should proceed with cystoscopy and stenting now. Otherwise as above. Subjective Patient is a 31-year-old female with no significant past medical history who presented to the ED for left-sided flank pain with nausea and vomiting. She was diagnosed with a UTI at an urgent care one week ago and treated with 3- day course of Bactrim and Pyridium. She felt the antibiotic improved her urinary symptoms but not long after completion of course her urinary tract symptoms returned and progressed with lower back and flank pain, nausea, and vomiting for the past two days. Febrile with vomiting in ED. Today the patients major concern is nausea and was given IV bolus of Zofran which allowed her to a banana and drink tea. She urinated twice last night which was not painful but remains orange. Had chills overnight but not currently. Her flank/back pain is present but mild. Her IV site is tender in arm and causing pain. Her blood pressure continues to be low. She denies dizziness and lightheadedness. She is sitting up in bed with no difficulty. Review of Systems Review of Systems: As per HPI Constitutional: no fever or chills Cardio: No chest pain, shortness of breath, or palpitations Resp: No cough, wheezing, or mucus production GI: +nausea, no vomiting, no diarrhea Physical Exam Physical Exam: General: well appearing and well nourished young woman in no acute distress CV: Regular rate and rhythm, normal S1 and S2, no murmurs/rubs/gallops Respiratory: Normal respiratory effort, lungs clear to auscultation bilaterally Abdomen: hyperactive bowel sounds, abdomen is soft and non-distended. Suprapubic and left flank tenderness to palpation. No guarding or rebound tenderness. CVA tenderness on left-side. Results & Data ([facility]) Vital Signs (Past 12 Hours) Vital Signs Temp Pulse Resp BP Pulse Ox 07/02/21 09:10 96 H 97/64 L 07/02/21 08:01 93 H 92/57 L 07/02/21 07:01 37 C 96 H 16 83/56 L 97 Laboratory Results Abnormal lab results 07/01/21 07/01/21 07/01/21 Range/Units 19:42 19:42 19:50 WBC 13.37 H (4.8-10.8) K/uL RBC (4.2-5.4) M/uL Hgb (12.0-16.0) g/dL Hct (37-47) % MPV 12.6 H (7.4-10.4) fL Neut # (Auto) 11.10 H (1.4-6.5) K/uL Lymph # (Auto) 1.09 L (1.2-3.4) K/uL Troup # (Auto) 1.14 H (0.11-0.59) K/uL Immature Gran # (Auto) 0.03 H (0.00-0.02) K/uL Sodium 134 L (136-145) mmol/L Chloride (98-107) mmol/L BUN (7-18) mg/dl Creatinine (0.6-1.2) mg/dl BUN/Creatinine Ratio (10-20) Glucose 133 H (70-99) mg/dl Calcium (8.5-10.1) mg/dl Globulin 4.5 H (2.5-4.0) gm/dl Albumin/Globulin Ratio 0.8 L (0.9-2) Urine Appearance Turbid A (Clear) Urine pH >= 9.0 H (4.5-7.5) Urine Protein 3+ H (Negative) Urine Blood 3+ H (Negative) Ur Leukocyte Esterase 3+ H (Negative) Urine WBC (Auto) >30 H (0-5) /hpf Urine RBC (Auto) >30 H (0-4) /hpf U Epithel Cells (Auto) >30 H (0-5) /lpf Urine Bacteria (Auto) 2+ H (Negative) 07/02/21 07/02/21 Range/Units 07:47 07:47 WBC 15.95 H (4.8-10.8) K/uL RBC 3.82 L (4.2-5.4) M/uL Hgb 11.0 L (12.0-16.0) g/dL Hct 33.4 L (37-47) % MPV 12.1 H (7.4-10.4) fL Neut # (Auto) 14.39 H (1.4-6.5) K/uL Lymph # (Auto) 1.04 L (1.2-3.4) K/uL Troup # (Auto) (0.11-0.59) K/uL Immature Gran # (Auto) 0.04 H (0.00-0.02) K/uL Sodium (136-145) mmol/L Chloride 111 H (98-107) mmol/L BUN 5 L (7-18) mg/dl Creatinine 0.57 L (0.6-1.2) mg/dl BUN/Creatinine Ratio 9.4 L (10-20) Glucose 118 H (70-99) mg/dl Calcium 7.9 L D (8.5-10.1) mg/dl Globulin (2.5-4.0) gm/dl Albumin/Globulin Ratio (0.9-2) Urine Appearance (Clear) Urine pH (4.5-7.5) Urine Protein (Negative) Urine Blood (Negative) Ur Leukocyte Esterase (Negative) Urine WBC (Auto) (0-5) /hpf Urine RBC (Auto) (0-4) /hpf U Epithel Cells (Auto) (0-5) /lpf Urine Bacteria (Auto) (Negative)
[2021-07-02] MEDS ORDERED: PROMETHAZINE HCL 25 MG in SODIUM CHLORIDE 0.9% 50 ML IV PRN (13:59)
--- NOTE | 2021-07-02 19:27 | Billing Data ---
Date of Service July 02, 2021 Coding Level of Care Code 75996 Subseq Hosp Care Lvl 3
[2021-07-02] MEDS: cefTRIAXone SODIUM 1,000 MG in DEXTROSE 5% 50 ML IV SCH (20:56)
[2021-07-02] MEDS: PROMETHAZINE HCL 12.5 MG in SODIUM CHLORIDE 0.9% 50 ML IV PRN (22:11)
[2021-07-03] MEDS: SODIUM CHLORIDE 0.9% 1000ML 1,000 ML IV SCH ×3 (01:07→20:48)
--- NOTE | 2021-07-03 05:47 | Billing Data ---
Date of Service July 03, 2021 Coding Level of Care Code 27459 Initial Inpt Care Lvl 2
--- NOTE | 2021-07-03 07:23 | Urology Progress Note ---
Date of Service July 03, 2021 Assessment & Plan (1) Pyelonephritis: (2) UTI (urinary tract infection): Plan: 31yo F admitted with concern for Pyelo/UTI and imaging suspicious for possible developing renal abscess - Patient clinically progressing, feeling better today than yesterday - Afebrile at time of exam, non-toxic appearing --Tmax 38.1 yesterday - Labs reviewed, Wbc down to 13.29 today (15.95 yesterday), Hgb 11.5, Cr 0.57 --Will continue to trend - UCx final with E.coli, sensitive to Ceftriaxone; BCx pending -- Continues on IV Ceftriaxone - Voiding without difficulty, bladder scan yesterday revealed she is emptying her bladder well. - No acute intervention warranted at this time - Recommend continue treatment with IV antibiotics while inpatient - Recommend extended course of PO antibiotics upon discharge, recommend Ciprofloxacin for a total of 14 days of antibiotic therapy - Continue supportive care and management per primary service - Will continue to follow closely with primary team - Please consult our service urgently if patient develops fever >101F, intractable pain or nausea, as this will necessitate urgent surgical intervention. Admission and Anticipated Discharge Date Admission Date: July 01, 2021 Supervising Physician Co-Signing Physician Notes Discussed patient and plan with PERCY. Agree with above. Rounded on patient personally. Feels clinically better, only complaint is nausea with small amount of emesis today. WBC downtrending. Had one 38.1 temp, which is not unexpected with pyelonephritis and general fever curve. In setting of clinical improvement, will continue to monitor conservatively. Urine culture positive for E. coli susceptible to ceftriaxone. Can transition to po cipro upon discharge. Urology to follow. Subjective Pt examined at beside this AM. Awake, resting in bed on arrival. She is feeling better today than yesterday. No nausea or vomiting since yesterday. Tolerating clear liquid diet. No fevers or chills this morning - TMAX 38.1 overnight. Still with left flank/lower abdominal pain, mostly with movement or palpation, but has denied need for pain medication. Voiding without difficulty, bladder scan yesterday revealed she is emptying her bladder well. No hematuria or dysuria. Reports urine is clear, yellow today. Denies urinary urgency/frequency. Ambulating without dizziness or lightheadedness. Review of Systems Constitutional: as per Subjective / HPI Ear, Nose, Mouth, Throat: + dry mouth Gastrointestinal: as per Subjective / HPI Genitourinary: as per Subjective / HPI Physical Exam Constitutional: well developed and well nourished; no acute distress Respiratory: normal respiratory effort and able to speak in complete sentences; no labored breathing and no audible wheezes Gastrointestinal (Abdomen): Inspection/Auscultation: abdomen normal to inspection; abdomen not distended Percussion/Palpation: + abdomen tender (mild left flank/suprapubic tenderness with palpation) and abdomen soft; no guarding and abdomen not rigid Musculoskeletal: Head/Neck/Chest: normocephalic Skin: No visible rashes or lesions to exposed skin areas Neurologic: moves all extremities and awake Psychiatric: Orientation: alert, oriented x 3 and cooperative Genitourinary: + CVA tenderness (mild left sided tenderness with palpation) Results & Data ([facility]) Vital Signs (Past 12 Hours) Vital Signs Temp Pulse Resp BP Pulse Ox 07/03/21 07:05 37.0 C 94 H 16 109/70 94 07/03/21 01:09 37.2 C 07/02/21 23:00 37.7 C H 96 H 16 100/60 96 07/02/21 21:50 38.1 C H 07/02/21 21:48 37.9 C H PG Care Time/CCT Total # of Minutes Spent Total Time Spent with Patient: Total time spent is greater than 50% in coordination of care (as documented) at patient's floor/unit and/or counseling patient: Coding Level of Care Code 20608 Subseq Hosp Care Lvl 2 Diagnoses Pyelonephritis N12 UTI (urinary tract infection) N39.0
--- NOTE | 2021-07-03 08:58 | Medical Student Progress Note ---
Date of Service July 03, 2021 Assessment & Plan (1) Pyelonephritis: Plan: Patient is a 31 yo F with no significant PMH admitted for L sided pyelonephritis and intrarenal abscess. L sided Pyelonephritis complicated by potential intrarenal abscess and hydroureter -Treated as outpatient with 3 day course of Bactrim, symptoms began to resolve then worsened prompting presentation to ED. -CT of ABD and pelvis showed Hydronephrosis, dilatation of the proximal left ureter. Heterogeneous attenuation/enhancement at superior pole of the left kidney potentially representing pyelonephritis/developing abscess. Diffuse thickening of urinary bladder wall. -Clinically progressing today -WBC improvement today 13.29 from 15.95 yesterday -She is voiding without difficulty, bladder scan yesterday shows shes emptying bladder -Urine culture preliminary E.coli sensitive to Ceftriaxone and resistant to Bactrim, blood culture still pending -Continue IV Ceftriaxone 1g daily -- consider transition to PO antibiotics in the AM if patient feeling better -Will notify urology service if patient develops fever >101F, intractable pain or nausea for possible acute intervention (emergent stent placement versus transfer to tertiary care for percutaneous nephrostomy) -maintenance IV fluids for hydration until patient tolerating p.o. -Zofran and Phenergan as needed for nausea -Plan for extended course of PO antibiotics at discharge per final culture, recommended Ciprofloxacin for a total of 14 days of antibiotic therapy by Nephrology DVT prophylaxis: No chemoprophylaxis at this time, encourage ambulation as tolerated FEN/GI: Regular diet, NSS at 100 cc/h Dispo: MedSurg telemetry Code: Full Admission and Anticipated Discharge Date Admission Date: July 01, 2021 Supervising Attestation I personally examined the patient and verified all sterling points of history and exam, discussed case, and agree with decision making with Renetta Saldivar MS2 Still had a fever, but overall feeling better. Able to eat better, but still does have some degree of nausea with one episode of vomiting, some refluxy type indigestionbut overall notes she is feeling better. Vitals noted, in general she is awake and alert pleasant no distress, HEENT normocephalic atraumatic mucous membranes moist. Breathing unlabored no accessory muscle use good effort. Skin shows no rashes no pallor or icterus. Neuro without focal deficits. Labs and diagnostics noted Left-sided pyelonephritis with sepsis present on admissioncomplicated by small probable renal abscess, and confounded or complicated by possible ureteral stricture or obstruction. Does appear to be improving on ceftriaxone. The renal abscess is small enough that antibiotics alone should clear this. Blood cultures thus far negative. As it relates to this apparent ureteral stricture or blockage with hydroureter, it is not clear if this is acute or chronic, and therefore is not entirely clear if it needs to be remedied for her to be on to clear the infection. Agree with urologyshe could possibly need cystoscopy and stenting, but as she continues to improve, it is becoming more clear that this may be a chronic issue that just needs to be monitored, or perhaps intervened on semielectively. For now continue ceftriaxone, hopefully home on cefdinir with a little more ongoing improvement. Then close outpatient follow-up. Continue to manage symptoms as it relates to nausea/indigestion. Otherwise as above. Subjective Pt is doing well this morning and resting comfortably. Feels like she is improving since yesterday. No nausea or vomiting since yesterday afternoon. Took nausea medications with dinner. Clear liquid diet since midnight per urology. Fever of 38.1 C overnight controlled with Tylenol, afebrile this morning. No chills. Flank/lower abdomen pain only present when she presses. No dysuria, burning or urinary frequency. Urinary urgency remains. Continues to be tachycardic with HR in 90s. No SOB, palpitations, or chest pain. No dizziness, lightheadedness, ambulating well. Review of Systems Constitutional: as per Subjective / HPI and + weakness No sweats or body aches. Ear, Nose, Mouth, Throat: + dry mouth and + sore throat (secondary to cold water) Respiratory: + cough (Secondary to cold water) Cardiovascular: as per Subjective / HPI Gastrointestinal: as per Subjective / HPI Genitourinary: as per Subjective / HPI Physical Exam Physical Exam: General: Awake, Alert and orientated x3. Well appearing and well nourished young woman in no acute distress HEENT: Atraumatic, moist mucus membranes CV: Regular rate and rhythm, normal S1 and S2, no murmurs/rubs/gallops Respiratory: Normal respiratory effort, lungs clear to auscultation bilaterally Abdomen: Bowel sounds present, abdomen is soft and non-distended. Left flank tenderness to deep palpation. No guarding or rebound tenderness. Results & Data ([facility]) Vital Signs (Past 12 Hours) Vital Signs Temp Pulse Resp BP Pulse Ox 07/03/21 07:05 37.0 C 94 H 16 109/70 94 07/03/21 01:09 37.2 C 07/02/21 23:00 37.7 C H 96 H 16 100/60 96 07/02/21 21:50 38.1 C H 07/02/21 21:48 37.9 C H
[2021-07-03 09:39] LABS: Basophils # (auto) 0.01 K/uL (0-0.2); Basophils % (auto) 0.1 %; Eosinophils # (auto) 0.02 K/uL (0-0.5); Eosinophils % (auto) 0.2 %; Hematocrit (blood only) 35.5 % (37-47); Hemoglobin 11.5 g/dL (12.0-16.0); Immature Granulocytes # (auto) 0.03 K/uL (0.00-0.02); Immature Granulocytes % (auto) 0.2 %; Lymphocytes # (auto) 1.31 K/uL (1.2-3.4); Lymphocytes % (auto) 9.9 %; Mean Corpuscular Hgb Conc 32.4 g/dL (32-36); Mean Corpuscular Volume 89.4 fL (80-100); Mean Platelet Volume 11.9 fL (7.4-10.4); Monocytes # (auto) 0.93 K/uL (0.11-0.59); Neutrophils # (auto) 10.99 K/uL (1.4-6.5); Neutrophils % (auto) 82.6 %; Platelet Count 159 K/uL (130-400); RDW Coefficient of Variation 13.2 % (11.5-14.5); RDW Standard Deviation 43.5 fL (36.4-46.3); Red Blood Count 3.97 M/uL (4.2-5.4); White Blood Count 13.29 K/uL (4.8-10.8)
[2021-07-03] MEDS: ONDANSETRON INJ 2 MG/ML 2 ML VIAL IV PRN ×2 (09:40→16:55)
[2021-07-03 10:09] LABS: BUN Creatinine Ratio 11.6 (10-20); Calcium 8.4 mg/dl (8.5-10.1); Creatinine Clr Calc Pharmacy 134.2 ml/min; Est GFR (African American) 144.2 ml/min; Est GFR (Non-African American) 124.4 ml/min; Potassium 3.4 mmol/L (3.5-5.1)
[2021-07-03] MEDS ORDERED: POTASSIUM CHLORIDE CRTAB 20 MEQ TABCR PO STA (10:13)
--- NOTE | 2021-07-03 18:45 | Billing Data ---
Date of Service July 03, 2021 Coding Level of Care Code 16355 Subseq Hosp Care Lvl 3
[2021-07-03] MEDS: PROMETHAZINE HCL 12.5 MG in SODIUM CHLORIDE 0.9% 50 ML IV PRN (21:09)
[2021-07-03] MEDS: ACETAMINOPHEN 325 MG TAB PO PRN (21:35)
[2021-07-03] MEDS: cefTRIAXone SODIUM 1,000 MG in DEXTROSE 5% 50 ML IV SCH (21:36)
[2021-07-04] MEDS: ONDANSETRON INJ 2 MG/ML 2 ML VIAL IV PRN (05:23)
[2021-07-04 06:47] LABS: Basophils # (auto) 0.01 K/uL (0-0.2); Basophils % (auto) 0.1 %; Eosinophils # (auto) 0.02 K/uL (0-0.5); Eosinophils % (auto) 0.2 %; Hemoglobin 10.4 g/dL (12.0-16.0); Immature Granulocytes # (auto) 0.02 K/uL (0.00-0.02); Immature Granulocytes % (auto) 0.2 %; Lymphocytes # (auto) 1.13 K/uL (1.2-3.4); Lymphocytes % (auto) 12.1 %; Mean Corpuscular Hgb Conc 33.5 g/dL (32-36); Mean Corpuscular Volume 86.4 fL (80-100); Mean Platelet Volume 11.5 fL (7.4-10.4); Monocytes # (auto) 0.66 K/uL (0.11-0.59); Monocytes % (auto) 7.1 %; Neutrophils # (auto) 7.48 K/uL (1.4-6.5); Neutrophils % (auto) 80.3 %; Platelet Count 165 K/uL (130-400); RDW Coefficient of Variation 13.2 % (11.5-14.5); RDW Standard Deviation 42.1 fL (36.4-46.3); Red Blood Count 3.59 M/uL (4.2-5.4); White Blood Count 9.32 K/uL (4.8-10.8)
[2021-07-04] MEDS: SODIUM CHLORIDE 0.9% 1000ML 1,000 ML IV SCH ×2 (07:13→16:59)
[2021-07-04 07:14] LABS: Calcium 7.8 mg/dl (8.5-10.1); Est GFR (African American) 149.6 ml/min; Potassium 3.2 mmol/L (3.5-5.1)
[2021-07-04] MEDS ORDERED: POTASSIUM CHLORIDE CRTAB 20 MEQ TABCR PO STA (07:55)
--- NOTE | 2021-07-04 08:21 | Urology Progress Note ---
Date of Service July 04, 2021 Assessment & Plan (1) UTI (urinary tract infection): (2) Pyelonephritis: Plan: 31yo F admitted with concern for Pyelo/UTI and imaging suspicious for possible developing renal abscess - Pt clinically progressing, only complaint today is nausea - Afebrile, non-toxic appearing --Tmax 38.4 yesterday evening - May continue to have cyclical fevers in the setting of pyelonephritis - Labs reviewed, Wbc downtrending and creatinine stable - UCx final with E.coli, sensitive to Ceftriaxone; BCx no growth in 24hrs - Voiding without difficulty, output appears adequate - Recommend continue treatment with IV antibiotics while inpatient - Recommend transition to PO Ciprofloxacin upon discharge for a total of 14 days of antibiotic therapy - Continue supportive care and management per primary service - Will continue to follow - Please consult our service urgently if patient develops fever >101F, intractable pain or nausea, as this will necessitate urgent surgical intervention. Admission and Anticipated Discharge Date Admission Date: July 01, 2021 Supervising Physician Co-Signing Physician Notes Discussed patient and plan with PERCY. Agree with above. Saw patient personally. Only complaint continues to be nausea. May benefit from increased bowel regimen. No flank pain, voiding without issue. WBC downtrending. Occasional low grade temp, but asymptomatic. Expected with pyelonephritis. Continue conservative measures and antibiotics. Subjective Pt examined at bedside this AM with Dr. Alberto. Awake, resting in bed on arrival. Feels she continues to improve. Only complaint is nausea. No vomiting. No fevers overnight - Tmax 38.4 yesterday evening. Voiding without difficulty. No hematuria or dysuria. Review of Systems Constitutional: as per Subjective / HPI Gastrointestinal: as per Subjective / HPI Genitourinary: as per Subjective / HPI Physical Exam Constitutional: well developed and well nourished; no acute distress and not ill appearing Respiratory: normal respiratory effort and able to speak in complete sentences; no labored breathing and no audible wheezes Gastrointestinal (Abdomen): Inspection/Auscultation: abdomen normal to inspection; abdomen not distended Musculoskeletal: Head/Neck/Chest: normocephalic Skin: No visible rashes or lesions to exposed skin areas Neurologic: moves all extremities and awake Psychiatric: Orientation: alert, oriented x 3 and cooperative Results & Data ([place]) Vital Signs (Past 12 Hours) Vital Signs Temp Pulse Resp BP BP Pulse Ox 07/04/21 07:42 37.0 C 75 16 108/71 94 07/03/21 22:20 37.5 C 88 16 98/57 L 95 07/03/21 21:19 38.4 C H PG Care Time/CCT Total # of Minutes Spent Total Time Spent with Patient: Total time spent is greater than 50% in coordination of care (as documented) at patient's floor/unit and/or counseling patient: Coding Level of Care Code 46904 Subseq Hosp Care Lvl 2 Diagnoses UTI (urinary tract infection) N39.0 Pyelonephritis N12
--- NOTE | 2021-07-04 09:15 | Medical Student Progress Note ---
Date of Service July 04, 2021 Assessment & Plan (1) Pyelonephritis: Plan: Patient is a 31 yo F with no significant PMH admitted for L sided pyelonephritis and intrarenal abscess. L sided Pyelonephritis complicated by potential intrarenal abscess and hydroureter -Treated as outpatient with 3 day course of Bactrim, symptoms began to resolve then worsened prompting presentation to ED. -CT of ABD and pelvis showed Hydronephrosis, dilatation of the proximal left ureter. Heterogeneous attenuation/enhancement at superior pole of the left kidney potentially representing pyelonephritis/developing abscess. Diffuse thickening of urinary bladder wall. -She continues to clinically improve, may continue to have cyclical fevers in the setting of pyelonephritis -WBC continue to trend downward 9.32 from 13.29 -She is voiding without difficulty -Urine culture shows E.coli sensitive to Ceftriaxone and resistant to Bactrim -Blood culture x2 showed no growth in anaerobic and aerobic culture in 24 hours -Discontinued IV ceftriaxone with transition to po Cefdinir today -Transition to po Zofran and Phenergan as needed for nausea, pt understands nausea may take a few days to subside -Plan for 14 day total course of antibiotics at discharge -Trial of po hydration and food intake this evening, anticipate discharge tomorrow morning DVT prophylaxis: No chemoprophylaxis at this time, encourage ambulation as tolerated FEN/GI: Regular diet, IVF dc today Dispo: MedSur telemetry Code: Full Admission and Anticipated Discharge Date Admission Date: July 01, 2021 Anticipated Discharge Date: July 04, 2021 Supervising Attestation I personally examined the patient and verified all sterling points of history and exam, discussed case, and agree with decision making with Renetta Saldivar MS2 Had a fever but really did not feel it, no chills. Still has nausea off and onbut overall improving. Through the day we switched to p.o. medicines and she was able to tolerate well. Noted later in the day she was voiding more frequently. Overall just concerned about how well she will do at home. Extensive discussions with patient early in the day and later in the evening, and in the evening she was able to get her on a video chat call, and I was able to answer all of his questions as well. Vitals noted, in general she is awake and alert pleasant no distress, HEENT normocephalic atraumatic mucous membranes moist. Breathing unlabored no accessory muscle use good effort. Skin shows no rashes no pallor or icterus. Neuro without focal deficits. Labs and diagnostics noted Left-sided pyelonephritis with sepsis present on admissioncomplicated by small probable renal abscess, and confounded or complicated by possible ureteral stricture or obstruction. Definitely improving on ceftriaxone. The renal abscess is small enough that antibiotics alone should clear this. Blood cultures thus far negative and I anticipate this to be the case through final report. As it relates to this apparent ureteral stricture or blockage with hydroureter, it is not clear if this is acute or chronic, and initially there was concern about whether or not it might be culprit to the infection/complicated improving from the infection. Agree with urologyshe could possibly need cystoscopy and stenting, but as she continues to improve, it is becoming more clear that this may be a chronic issue that just needs to be monitored, or perhaps intervened on semielectively. Switch to cefdinir, stop IV fluids, follow p.o. intakeas long as she is doing well, hopefully home tomorrow. Otherwise as above. Subjective Pt is doing well this morning with no discomfort. Overnight had a fever overnight 38.4 C but did not feel uncomfortable. 1 episode of nausea overnight with dry heaving but no vomiting. Eating well and drinking well this morning. Had normal BM. No pain, burning, or urgency with urination. Peeing frequently. Ambulating well. This morning: no fevers, chills, nausea, vomiting this morning. No fatigue, lightheadedness, or dizziness. Rechecked in with patient this afternoon. Febrile at 37.7 C. She does continue to feel well. Will monitor po medications fluids, and food this evening and plan for discharge tomorrow. Review of Systems Review of Systems: All systems reviewed & are unremarkable except as noted in Subjective Physical Exam Physical Exam: General: Awake, Alert and orientated x3. Well appearing and well nourished young woman in no acute distress HEENT: Atraumatic, moist mucus membranes CV: Regular rate and rhythm, normal S1 and S2, no murmurs/rubs/gallops Respiratory: Normal respiratory effort, lungs clear to auscultation bilaterally Abdomen: Bowel sounds present, abdomen is soft and non-distended. Mild left flank and suprapubic tenderness to deep palpation. No guarding or rebound tenderness. Mild CVA tenderness of the left side. Results & Data ([facility]) Vital Signs (Past 12 Hours) Vital Signs Temp Pulse Resp BP BP Pulse Ox 07/04/21 07:42 37.0 C 75 16 108/71 94 07/03/21 22:20 37.5 C 88 16 98/57 L 95 07/03/21 21:19 38.4 C H Laboratory Results UCx: grew E. coli sensitive to Ceftriaxone, resistant to Bactrim BCx 2x: No growth in anaerobic and aerobic culture in 24 hours Hb.4 normal MCV WBC: 9.32 this am (down 13.29) Potassium - 3.2
[2021-07-04] MEDS: PROMETHAZINE HCL 12.5 MG in SODIUM CHLORIDE 0.9% 50 ML IV PRN (09:24)
[2021-07-04] MEDS ORDERED: CEFDINIR 300 MG CAP PO STA (11:31)
[2021-07-04] MEDS ORDERED: PROMETHAZINE HCL 25 MG TAB PO PRN (11:32)
[2021-07-04] MEDS ORDERED: PROMETHAZINE HCL 12.5 MG in SODIUM CHLORIDE 0.9% 50 ML IV PRN (11:34)
[2021-07-04] MEDS ORDERED: ONDANSETRON INJ 2 MG/ML 2 ML VIAL IV PRN (11:34)
[2021-07-04] MEDS: ONDANSETRON 4 MG OD TAB PO PRN (16:57)
[2021-07-04] MEDS: CEFDINIR 300 MG CAP PO SCH (20:07)
--- NOTE | 2021-07-04 20:45 | Billing Data ---
Date of Service July 04, 2021 Coding Level of Care Code 58855 Subseq Hosp Care Lvl 3
[2021-07-05 07:40] LABS: Basophils # (auto) 0.01 K/uL (0-0.2); Basophils % (auto) 0.1 %; Eosinophils # (auto) 0.03 K/uL (0-0.5); Eosinophils % (auto) 0.4 %; Hematocrit (blood only) 33.8 % (37-47); Hemoglobin 11.4 g/dL (12.0-16.0); Immature Granulocytes # (auto) 0.02 K/uL (0.00-0.02); Immature Granulocytes % (auto) 0.3 %; Lymphocytes # (auto) 1.59 K/uL (1.2-3.4); Lymphocytes % (auto) 21.3 %; Mean Corpuscular Hemoglobin 28.9 pg (25-34); Mean Corpuscular Hgb Conc 33.7 g/dL (32-36); Mean Corpuscular Volume 85.8 fL (80-100); Mean Platelet Volume 11.6 fL (7.4-10.4); Monocytes # (auto) 0.64 K/uL (0.11-0.59); Monocytes % (auto) 8.6 %; Neutrophils # (auto) 5.19 K/uL (1.4-6.5); Neutrophils % (auto) 69.3 %; Platelet Count 230 K/uL (130-400); Red Blood Count 3.94 M/uL (4.2-5.4); White Blood Count 7.48 K/uL (4.8-10.8)
[2021-07-05 08:32] LABS: BUN Creatinine Ratio 4.8 (10-20); Calcium 9.1 mg/dl (8.5-10.1); Creatinine Clr Calc Pharmacy 147.1 ml/min; Est GFR (African American) 148.6 ml/min; Est GFR (Non-African American) 128.2 ml/min; Potassium 3.9 mmol/L (3.5-5.1)
[2021-07-05] MEDS ORDERED: NURSING DECISION MEDICATION ONE (08:40)
[2021-07-05] MEDS ORDERED: COUGH DROP (SUGAR FREE) LOZ 24 LOZ/1 BOX BUCCAL ONE (08:44)
[2021-07-05] MEDS: ONDANSETRON 4 MG OD TAB PO PRN (08:46)
[2021-07-05] MEDS: CEFDINIR 300 MG CAP PO SCH (08:46)
[2021-07-05] MEDS ORDERED: COUGH DROP (SUGAR FREE) LOZ 24 LOZ/1 BOX BUCCAL PRN (08:47)
[2021-07-05 09:25] VITALS: BP 111/72; PULSE 92; TEMP 98.6; O2SAT 95
--- NOTE | 2021-07-05 09:55 | Urology Progress Note ---
Date of Service July 05, 2021 Assessment & Plan (1) UTI (urinary tract infection): (2) Pyelonephritis: Plan: 31yo F admitted with concern for Pyelo/UTI and imaging suspicious for possible developing renal abscess - Pt feeling well this morning, eager to go home. - Afebrile, non-toxic appearing --Tmax 37.7 yesterday evening - Labs reviewed, Wbc and creatinine stable - UCx final with E.coli; BCx NGTD - Transitioned to oral Cefdinir yesterday - Voiding without difficulty, output appears adequate - Recommend continue oral antibiotics upon discharge for a total of 14 days of antibiotic therapy - Will arrange outpatient follow-up with urology in 1 month with renal ultrasound prior to appointment - Patient agreeable to plan, all questions were answered. - Thank you for allowing us to participate in the acute care of Ms. Josephine Barajas. Please reconsult us with additional questions, concerns or changes in patient status. Admission and Anticipated Discharge Date Admission Date: July 01, 2021 Subjective Pt examined at bedside this AM. Awake, resting in bed on arrival. Afebrile at present - TMAX 37.7 yesterday evening. No complaints of pain at present. Tolerating diet. Has been utilizing prn nausea medication prior to meals. No vomiting. Voiding without difficulty. No hematuria or dysuria. Eager to go home. Review of Systems Constitutional: as per Subjective / HPI Gastrointestinal: as per Subjective / HPI Genitourinary: as per Subjective / HPI Physical Exam Constitutional: well developed and well nourished; no acute distress and not ill appearing Respiratory: normal respiratory effort and able to speak in complete sentences; no labored breathing and no audible wheezes Gastrointestinal (Abdomen): Inspection/Auscultation: abdomen normal to inspection; abdomen not distended Musculoskeletal: Head/Neck/Chest: normocephalic Skin: No visible rashes or lesions to exposed skin areas Neurologic: moves all extremities and awake Psychiatric: Orientation: alert, oriented x 3 and cooperative Results & Data ([facility]) Vital Signs (Past 12 Hours) Vital Signs Temp Pulse Pulse Resp BP Pulse Ox 07/05/21 07:35 37 C 92 H 18 111/72 95 07/04/21 23:20 37.6 C H 87 14 122/75 97 PG Care Time/CCT Total # of Minutes Spent Total Time Spent with Patient: Total time spent is greater than 50% in coordination of care (as documented) at patient's floor/unit and/or counseling patient: Coding Level of Care Code 80605 Subseq Hosp Care Lvl 2 Diagnoses UTI (urinary tract infection) N39.0 Pyelonephritis N12
--- NOTE | 2021-07-05 11:06 | Discharge Summary ---
Date of Service July 05, 2021 Admission HPI Per Admitting Provider Patient is a 31-year-old female with no significant past medical history who presented for left-sided flank pain with nausea and vomiting. She mentions that she was recently diagnosed with a UTI at a urgent care about 6 days ago. She had urinary symptoms including dysuria, frequency, urgency, hematuria. She was given a 3-day course of Bactrim and Pyridium. Per patient and , they received a call from the urgent care center stating that her urine culture was inconclusive. However, she did complete her entire course of Bactrim. She mentions that the symptoms were improving when she was on Bactrim but shortly after completing the treatment, symptoms returned and she also developed vomiting as well as left flank pain. She has been unable to tolerate very much oral nutrition or hydration. Currently, patient states that her pain is largely well controlled and rates it about it 2-3 out of 10. She says at worst has been up to a 7 or 8. In the ED, received acetaminophen 1000 mg x 1, ceftriaxone 1000 mg x 1, Toradol 15 mg IV x1, normal saline 1 L bolus, Zofran 4 mg IV x1. Had CT abdomen/pelvis read by denirad as outlined below. Additionally, had labs significant for white count of 13.37, urinalysis with turbid appearance, high pH, 3+ protein, 3+ blood, 3+ leuk esterase, WBCs, RBCs, epithelial cells, 2+ bacteria. Admission Exam Per Admitting Provider GENERAL: A&Ox3. NAD. HEENT: PERRL, EOMI. Moist mucous membranes. NECK: No JVD. No lymphadenopathy. CHEST/LUNGS: CTAB A/P. No crackles, wheezes, rales, rhonchi. HEART: RRR. No m/g/r. No carotid bruits. ABDOMEN: ND, soft. BS+x4. TTP LLQ, + CVA tenderness on left EXTREMITIES: No cyanosis, no clubbing, no edema SKIN: Warm and dry. No rashes or lesions. PSYCHIATRIC: Euthymic affect, no SI, no pressured speech, no hallucinations NEUROLOGIC: No FND. CN II-XII grossly intact. Principal Diagnosis pyelonephritis Discharge Exam GENERAL: No acute distress. Well developed and well nourished. Vital signs reviewed as above. EYES: EOMI. Anicteric sclerae. HENT: Moist mucous membranes. RESPIRATORY: Clear to auscultation bilaterally. No wheezing, rales, or rhonchi. CARDIOVASCULAR: Regular rate and rhythm. No murmurs. ABDOMEN: Soft, non-tender and non-distended. Normal bowel sounds. No CVA tenderness. EXTREMITIES: No edema. Non-tender. SKIN: Warm, dry. No rashes or lesions. NEUROLOGIC: A/O x3. No focal neurological deficits. PSYCHIATRIC: Cooperative. Appropriate mood and affect. Discharge Data Allergies Allergy/AdvReac Type Severity Reaction Status Date / Time No Known Allergies Allergy Verified 07/01/21 20:02 Consultations 07/01/21 22:34 ED Decision to Admit Stat 07/02/21 01:13 Consult Urology Routine Ordered Studies 07/01/21 20:07 CT abd pelvis IV con only Urgent Hospital Course (1) Pyelonephritis: Karl Burton is a 31 yo female with no significant PMHx admitted for L sided pyelonephritis. L sided Pyelonephritis complicated by potential intrarenal abscess and hydroureter -Treated as outpatient with 3 day course of Bactrim, symptoms began to resolve then worsened prompting presentation to ED -CT A/P showed Hydronephrosis, dilatation of the proximal left ureter. Heterogeneous attenuation/enhancement at superior pole of the left kidney potentially representing pyelonephritis/developing abscess. Diffuse thickening of urinary bladder wall. - Ureteral stricture or blockage with hydroureter -- unclear if acute or chronic but patient clinically improved from infection; agree with urology -- she could possibly need cystoscopy/stenting but given clinical improvement with abx therapy, appears to be more of a chronic issue and can f/u with urology as outpatient -Leukocytosis resolved during hospitalization -Voiding without difficulty -Urine culture shows E.coli sensitive to Ceftriaxone and resistant to Bactrim -Blood culture x2 showed no growth in anaerobic and aerobic culture in 24 hours -Discontinued IV ceftriaxone with transition to po Cefdinir day prior to discharge -- plan to continue Cefdinir 300mg po BID x12 days (total of 14 day abx therapy duration) -Rx Zofran ODT and phenergan po prn for nausea -Plan to f/u with urology in 1 month post discharge (2) UTI (urinary tract infection): Total Time Total Time Spent Total Time Spent (In Minutes): <30 Discharge Plan Discharge Items Patient Disposition: Home - Self-Care Reason For Visit: PYELONEPHRITIS Discharge Diagnosis: pyelonephritis Condition on Discharge: Good Activity: Resume your previous activity Non-emergency contact: Primary Care Provider and Urologist Call non-emergency contact if: you have any medication questions Follow-up/Referrals: Mario Hopkins MD [Physician] - None (Office will call patient with appointment date and time) Natividad Ruiz DO [Resident] - 07/08/21 7:50 am PCP,NO [Primary Care Provider] - Diet: Regular Addtl Attending Provider Instructions: It was our pleasure to care for you at [facility] from 07/01/21 to 07/05/21. You initially presented to the emergency room with left sided flank pain, nausea, and vomiting. You were admitted due to an urinary tract infection that progressed to pyelonephritis (kidney infection). While hospitalized, you received IV antibiotics and were then transitioned to antibiotics by mouth. You have done well and at this point are doing well enough that we feel it is safe for you to go home. It is important that you continue the following medications: 1. Cefdinir (an antibiotic) -- take Cefdinir 300mg by mouth twice a day for 12 days (this is a total duration of antibiotic therapy of 14 days). 2. Zofran (an anti-nausea medication) -- take Zofran 4mg ODT every 6 hours as needed for nausea -- this is a medication that you put under your tongue and let it dissolve. 3. Phenergan (an anti-nausea medication) -- take Phenergan 25mg by mouth every 6 hours as needed for nausea. It is important that you stay well hydrated and drink plenty of fluids. Try to drink 80 oz. of water daily. Follow up with Dr. Ruiz in the office next week. An appointment has been scheduled for you on 07/08/2021 at 7:50 AM. Office is located at [address] [place] [address]. This is located in the building across the street from [facility]. Please call [phone] if you need to reschedule the appointment or if you have any questions or concerns. You should also follow up with urology, Dr. Kellie, in about 1 month. Return to the ER if you have worsening pain, fever, nausea, or any other concerning symptoms. Pending Studies at Discharge: No Stand-Alone Forms: [facility], Smoking Cessation Medications and DC Order Prescriptions: New promethazine 25 mg Tablet 25 mg PO Q6H PRN (Reason: nausea and vomiting) 7 Days Qty: 30 RF: 0 ondansetron 4 mg Tablet,Disintegrating 4 mg PO Q6H PRN (Reason: nausea and vomiting) 7 Days Qty: 30 RF: 0 cefdinir 300 mg Capsule 300 mg PO BID 12 Days Qty: 24 RF: 0 Continued calcium carbonate [Tums] 200 mg calcium (500 mg) Tablet,Chewable 200 - 400 mg PO DIRECTED PRN (Reason: Indigestion) RF: 0 Laxative (bisacodyl) 5 mg Tablet 0 mg PO DIRECTED PRN (Reason: Constipation) RF: 0 Discontinued sulfamethoxazole-trimethoprim [Bactrim DS] 800-160 mg Tablet 1 tab PO BID RF: 0 Discharge Orders: Discharge Order (Routine); Ordered 07/05/21 Ordered By: Natividad Horton/Other Patient Handouts: Urinary Tract Infections in Women Admission Data Admit Date/Time: 07/01/21 23:06 Attending Provider: Richard Bay Admit Provider: Saúl Rubin Primary Care Provider: PCP,NO Other Providers: Henri Lugo ; Jared Prescott Other Interventions: Discharge Summary Assessment (RN) Last Done: 07/05/21 11:02 Supervising Physician Co-Signing Physician Notes I personally examined the patient and verified all sterling points of history and exam, discussed case, and agree with decision making with Dr Ruiz feeling better feeling up to going home answered all of her questions and (via videochat) her 's questions to the best of my ability Vitals noted, in general she is awake and alert pleasant no distress. HEENT normocephalic atraumatic mucous membranes are moist. Breathing unlabored no accessory muscle use good effort. Skin shows no rashes no pallor or icterus. Neuro without focal deficits. Left-sided pyelonephritis with sepsis present on admissioncomplicated by small probable renal abscess, and confounded or complicated by possible ureteral stricture or obstruction. Definitely improving on ceftriaxone. The renal abscess is small enough that antibiotics alone should clear this. Blood cultures thus far negative and I anticipate this to be the case through final report. As it relates to this apparent ureteral stricture or blockage with hydroureter, it is not clear if this is acute or chronic, and initially there was concern about whether or not it might be culprit to the infection/complicated improving from the infection. Agree with urologyshe could possibly need cystoscopy and stenting, but as she continues to improve, it has become clear that this is likely a chronic issue that just needs to be monitored, or perhaps intervened on semielectively. Safe/stable for home. Cefdinir, Zofran/Phenergan as needed nausea. Outpatient follow-up. Otherwise as above. Resident Activity Tracking Resident Involvement: Resident Care Provided Care Provided: Adult Hospital Medicine
--- NOTE | 2021-07-05 20:07 | Billing Data ---
Date of Service July 05, 2021 Coding Level of Care Code D/C DAY MANAGEMENT <30 MINS
== END 2021-07-05 13:21 | disposition home or self-care (01) | DRG 871 ==
LOC: ED 15:14 → SUATTDRO 23:06 → 3N 23:06
DX: N13.6 Pyonephrosis; B96.20 Unspecified Escherichia coli [E. coli] as the cause of diseases classified elsewhere; A41.9 Sepsis, unspecified organism; N15.1 Renal and perinephric abscess